=== PATIENT | female | born 1970 | race Caucasian/White ===

== ENCOUNTER → 2017-08-23 13:54 | Outpatient (CLI) | payer OTHER, SELFPAY ==
--- NOTE | 2017-08-28 08:26 | LEAS ---
Arterial Study - Arterial Study Arterial Study: This is a 47-year-old female with a history of hypertension, hyperlipidemia, and diabetes mellitus. Suspecting the presence of atherosclerotic peripheral arterial occlusive disease, the patient was brought to the noninvasive vascular laboratory at this time for the purpose of bilateral noninvasive lower extremity arterial assessment. Doppler signal assessment was used to evaluate the pulses at ankle level bilaterally. The posterior tibial and dorsalis pedis pulses were triphasic bilaterally. Segmental limb pressures were obtained bilaterally. The right ankle pressure, as determined by posterior tibial pulse, was measured at 156 mmHg. The right ankle pressure, as determined by dorsalis pedis pulse, was measured at 133 mmHg. The right digital pressure was measured at 115 mmHg. The left ankle pressure, as determined by posterior tibial pulse, was measured at 152 mmHg. The left ankle pressure, as determined by dorsalis pedis pulse, was measured at 149 mmHg. The left digital pressure was measured at 115 mmHg. Pulse-volume recordings were obtained bilaterally and segmentally. Waveform amplitudes appeared to be satisfactory at all levels bilaterally, including low thigh, calf, ankle, and digital levels. Resting ankle-brachial indices were calculated bilaterally. The resting right ankle-brachial index was calculated to be 1.25. The resting left ankle-brachial index was calculated to be 1.22. Digital-brachial indices were calculated bilaterally. The right digital-brachial index was calculated to be 0.92. The left digital-brachial index was calculated to be 0.92. Impression: Based upon the findings of this resting noninvasive lower extremity arterial study, there is no evidence of significant atherosclerotic peripheral arterial occlusive disease in the lower extremities bilaterally. Triphasic waveforms are noted at ankle level bilaterally. Resting ankle-brachial indices were bilaterally normal. Digital-brachial indices were normal bilaterally. In summary, this represents a normal resting noninvasive lower extremity arterial study bilaterally
--- NOTE | 2017-08-28 08:29 | LEAS_ITS ---
Arterial Study - Arterial Study Arterial Study: This is a 47-year-old female with a history of hypertension, hyperlipidemia, and diabetes mellitus. Suspecting the presence of atherosclerotic peripheral arterial occlusive disease, the patient was brought to the noninvasive vascular laboratory at this time for the purpose of bilateral noninvasive lower extremity arterial assessment. Doppler signal assessment was used to evaluate the pulses at ankle level bilaterally. The posterior tibial and dorsalis pedis pulses were triphasic bilaterally. Segmental limb pressures were obtained bilaterally. The right ankle pressure, as determined by posterior tibial pulse, was measured at 156 mmHg. The right ankle pressure, as determined by dorsalis pedis pulse, was measured at 133 mmHg. The right digital pressure was measured at 115 mmHg. The left ankle pressure, as determined by posterior tibial pulse, was measured at 152 mmHg. The left ankle pressure, as determined by dorsalis pedis pulse, was measured at 149 mmHg. The left digital pressure was measured at 115 mmHg. Pulse-volume recordings were obtained bilaterally and segmentally. Waveform amplitudes appeared to be satisfactory at all levels bilaterally, including low thigh, calf, ankle, and digital levels. Resting ankle-brachial indices were calculated bilaterally. The resting right ankle-brachial index was calculated to be 1.25. The resting left ankle- brachial index was calculated to be 1.22. Digital-brachial indices were calculated bilaterally. The right digital- brachial index was calculated to be 0.92. The left digital-brachial index was calculated to be 0.92. Impression: Based upon the findings of this resting noninvasive lower extremity arterial study, there is no evidence of significant atherosclerotic peripheral arterial occlusive disease in the lower extremities bilaterally. Triphasic waveforms are noted at ankle level bilaterally. Resting ankle-brachial indices were bilaterally normal. Digital-brachial indices were normal bilaterally. In summary, this represents a normal resting noninvasive lower extremity arterial study bilaterally
== END ==
PROVIDERS: Family Provider Family Medicine; PCP Family Medicine; Visit Provider Podiatrist
DX: I73.9 Peripheral vascular disease, unspecified (principal)
CPT/HCPCS: 93923

== ENCOUNTER → 2019-03-13 05:57 | Outpatient (CLI) | payer OTHER, SELFPAY ==
--- NOTE | 2019-03-13 10:10 | NEURO ---
NCS and/or EMG Patient Report Ordering Doctor: Chris Moy DATE OF SERVICE: 03/13/19 Kisha Luo is a 48 year old female who presents for electrodiagnostic testing of the lower limbs. She has numbness and tingling in both toes, worse on the right. There is tingling in the left calf. Electrodiagnostic findings: Peroneal motor nerve demonstrates normal distal latency, amplitude and conduction velocity bilaterally. Normal tibial motor response bilaterally. Normal peroneal and tibial F waves. H reflex prolonged on the left side. Prolonged left sural latency is noted. Superficial peroneal responses are normal. Plantar responses within normal limits. Needle EMG demonstrates no evidence of denervation in any muscles tested. Motor unit action potentials of normal amplitude and duration. Electrodiagnostic impression: This is an abnormal study in the lower limbs. 1. 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 2. No electrodiagnostic evidence is noted for peripheral polyneuropathy. 3. There is no electrodiagnostic evidence for lumbosacral radiculopathy. If there are any further questions, please do not hesitate to contact me.
== END ==
PROVIDERS: Family Provider Family Medicine; PCP Family Medicine; Referring Provider Podiatrist; Visit Provider Podiatrist
DX: R20.0 Anesthesia of skin (principal); R20.2 Paresthesia of skin; G62.9 Polyneuropathy, unspecified; M54.10 Radiculopathy, site unspecified
CPT/HCPCS: 95886; 95913

== ENCOUNTER → 2020-02-13 10:45 | Outpatient (CLI) | payer OTHER, SELFPAY ==
[2020-02-13 10:42] VITALS: BMI 31.8
--- NOTE | 2020-02-13 10:46 | RAD_ITS ---
STUDY: X-RAY - LEFT SHOULDER REASON FOR EXAM: Chronic left shoulder pain, no specific injury. TECHNIQUE: 4 view(s) of the shoulder. COMPARISON: None. FINDINGS: Normal glenohumeral articulation. Normal acromioclavicular joint. Normal acromion. Normal humeral head and visualized proximal humerus. The soft tissue structures are unremarkable. Normal visualized pulmonary apex. RAD/Shoulder min 2 Views IMPRESSION: Normal x-ray examination of the left shoulder. Electronically Signed: Sanjeev Justin MD at 12:09 EDT Tel , Service support ,
--- NOTE | 2020-02-13 10:46 | RAD_ITS ---
STUDY: X-RAY - RIGHT SHOULDER REASON FOR EXAM: Chronic right shoulder pain, no specific injury. TECHNIQUE: 4 view(s) of the shoulder. COMPARISON: None. FINDINGS: Normal glenohumeral articulation. Normal acromioclavicular joint. Normal acromion. Normal humeral head and visualized proximal humerus. The soft tissue structures are unremarkable. Normal visualized pulmonary apex. RAD/Shoulder min 2 Views IMPRESSION: Normal x-ray examination of the right shoulder. Electronically Signed: Sanjeev Justin MD at 11:27 EDT Tel , Service support ,
== END ==
PROVIDERS: PCP Family Medicine; Referring Provider Orthopaedic Surgery; Visit Provider Orthopaedic Surgery
DX: M25.511 Pain in right shoulder (principal); M25.512 Pain in left shoulder
CPT/HCPCS: 73030

== ENCOUNTER 2020-03-14 09:27 | Emergency (ER) | payer OTHER, SELFPAY ==
[2020-02-13 10:42] VITALS: BMI 31.8
[2020-03-14 09:28] VITALS: BP 150/95; PULSE 89; RESP 16; TEMP 36.3; O2SAT 99; BMI 30.7
--- NOTE | 2020-03-14 10:20 | ED.DCSUM_ITS ---
History of Present Illness Chief Complaint: Upper Extremity Injury Informant: Patient Onset: Today Maximum Severity: Mild Narrative: The patient presents complaining of right shoulder pain occurred today she indicates she slipped related to an item on the floor she then had a jerking movement to her right shoulder she did not fall or strike her shoulder, She has a history of pain in that right shoulder related to a partial tear to rotator cuff she had an injection of steroid she believes a few weeks ago by Dr. Tyler orthoped[facility] she has been undergoing physical therapy she exacerbated her shoulder pain the wide amplitude movement today she has no numbness weakness paresthesias to the hand again she did not fall or strike herself Past Medical History - Allergies and Home Meds Allergies/Adverse Reactions: Allergies ketoconazole Allergy (Verified 03/14/20 09:30) Other LIPS SWELL melatonin Allergy (Verified 03/14/20 09:30) Itching Penicillins Allergy (Verified 03/14/20 09:30) Hives Sulfa (Sulfonamide Antibiotics) Allergy (Verified 03/14/20 09:30) Hives Primary Care Physician: Rex Armendariz MD [NON-STAFF] - Past Medical History: - - Includes as above diabetes right shoulder injury Smoking Status: Never smoker Review of Systems General: Denies: Chills, Fever, Sweats Eyes: Denies: Visual changes - bilaterally, Diplopia ENT: Denies: Rhinorrhea, Sore throat Cardiovascular: Denies: Chest pain, Palpitations Respiratory: Denies: Dyspnea, Cough, Dyspnea on exertion Gastrointestinal: Denies: Abdominal pain, Nausea, Vomiting, Diarrhea, Melena, Hematochezia Genitourinary: Denies: Dysuria, Hematuria, Frequency Musculoskeletal: Reports: Extremity Pain. Denies: Back pain Skin: Denies: Rash, Wounds Neurological: Denies: Headache, Weakness, Numbness Physical Exam Vital Signs/Narrative: Vital Signs Temp Pulse Resp BP Pulse Ox 03/14/20 09:28 97.3 F L 89 16 150/95 H 99 General: Well nourished, Well developed, No Acute Distress Head: Normocephalic, Atraumatic Eyes: Perrl, EOMI ENT: Moist mucous membranes, No rhinorrhea Neck: Supple, Nontender Cardiovascular: Regular rate, Regular rhythm, No murmurs Respiratory: No distress, CTA bilaterally, Chest nontender Abdomen: Soft, Nontender, Nondistended, Normal bowel sounds Back: Nontender, Normal Inspection Extremities: No edema, - - Is a nonspecific discomfort to the anterior right shoulder her forward elevation lateral elevation range of motion is intact, she has no signs of dislocation or fracture, she has full range of motion to elbow forearm wrist hand normal function no neurovascular issues Skin: Normal color, No rash Neurological: Alert, Oriented x3, Cranial nerves II-XII grossly intact, Normal Strength, Normal Sensation Psychological: Normal affect, Normal Mood Diagnostic/Tx/Re-eval - Medical Decision Making Discussed all the above the patient discussed the differential discussed x-rays she declined she question whether she needed an MRI, I explained to that procedure was not generally available through the emergency department again she declined the x-ray at this time she was with a sling Naprosyn for pain Whately as rescue medicine she will follow-up with orthopedic providers for further management return for change in symptoms Home stable Final impression acute exacerbation of right shoulder injury ED Disposition - Plan for ED Patient: Diagnosis: Right shoulder injury Instructions: ED Shoulder Sprain Prescriptions: Naproxen [Naprosyn] 500 mg PO BID #20 tab Prescription Printed Hydrocodone Bitart/Apap 5-325 [Whately 5MG-325MG] 1 tab PO Q4H PRN PRN 2 Days #10 tab PRN Reason: Pain Prescription Printed Referrals: Rex Armendariz MD [NON-STAFF] -
[2020-03-14] MEDS: Naproxen 500 MG Tablet PO (10:29)
== END 2020-03-14 10:34 | disposition home or self-care (01) ==
PROVIDERS: Emergency Provider Emergency Medicine; PCP Family Medicine
DX: S49.91XA Unspecified injury of right shoulder and upper arm, initial encounter (principal); W01.0XXA Fall on same level from slipping, tripping and stumbling without subsequent striking against object, initial encounter; Y93.9 Activity, unspecified; Y92.9 Unspecified place or not applicable; Y99.9 Unspecified external cause status; E11.9 Type 2 diabetes mellitus without complications; Z79.84 Long term (current) use of oral hypoglycemic drugs; Z79.899 Other long term (current) drug therapy
CPT/HCPCS: 99283

== ENCOUNTER 2022-03-30 16:30 | Outpatient (RCR) | payer OTHER, SELFPAY ==
--- NOTE | 2022-02-14 08:23 | HP.PTEVAL_ITS ---
Patient's Visit Information MACK PENA is a 51 year old F referred to Physical Therapy by Dr. Chris Moy DPM with a diagnosis of L achilles tendonitis, Plantar fasciitis. Date of Evaluation: 02/10/22 Physical Therapist: Sacha Montez DPT - Visit Plan Frequency: 2x /Week Duration: 6 Weeks Plan: Start with instruction on prolonged moderate stretching, frequently. Avoid aggressive stretching as this previously caused increased pain. Add in DN/US to achilles tendon, consider graston to similar region as well. Once symptoms have reduced a bit add in eccentric exercises. - Subjective Pt. is here today for her initial evaluation with of L achilles tendonitis, and plantar fasciitis. She reports having issues for about 1 year. She thinks see a chiro might have started this. She reports increased pain in AMs and with initial getting up after prolonged sitting. She denies N/T in either LE. Pt. reports no other mech of injury. She does have some issues going up and down stairs. She is sleeping okay, but is not wearing the splint at night due to only tolerating a about 1 hour at a time. 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 I talked to her about stretching consistently at work and throughout the day. Pt. would like to be able to complete all of her daily activities without limitations. - Pain L heel, plantar fascitis Pain Intensity (Out of 10): 0 Pain Intensity Range: 8 Comment: worse in AMs. - Objective POSTURE: Pt. has decent posture in stance. She does present with increased arch height in stance. Small increased pronation during SLS, symmetrical. PALPATION: Pt. is tender as distal insertion of Achilles tendon and along the tendon it self. NEURO: normal throughout BLEs. Normal DTR of B Achilles and patellar tendons. Pt is able to rise on heels and toes without issues. ROM: R ankle: DF 18deg, PF 54deg, Inv 18deg, EVR 18deg. R ankle: PF 46deg, DF 10deg, EVR 7 deg, INV 18deg. R knee: 0-0-103deg, L knee: 0-0-134deg. Pt. has tightness in B HS as well. She does have good length of soleus, but much more tightness of R gastroc musculature. MMT: 5/5 throughout BLEs. Pt. did have some pain at distal L Achilles tendon with firm PF. GAIT: Pt. ambulates without AD. She does have much of an antalgic pattern, but does present with slight early heel off during pre swing on R side and decreased DF noticed during L swing phase. STAIRS: much more difficulty with descending during L stance phase, resulting in early heel off and increased L knee flexion. - Balance/Special Test Scores Lower Extremity Functional Score: 59 - Goals Goal 1:: LTG: Pt. to be I with HEP. Goal Time Frame: 2-4 Weeks Goal 2:: STG: Pt. to have decreased pain with initial walking in AMs and throughout the day to 0-2/10 pain. Goal Time Frame: 2 Weeks Goal 3:: LTG: Pt. to have normal gait pattern without increase in L heel/Achilles pain. Goal Time Frame: 4-6 Weeks Goal 4:: LTG: Pt. to have at least 15deg of L ankle DF allowing for increased tolerance to all functional mobility. Goal Time Frame: 4-6 Weeks Goal 5:: LTG: Pt. to complete all work activities without increase in symptoms. - Rehabilitation Potential Physical Therapy Diagnosis: Pt. has signs and symptoms consistent with L Achilles tendonitis. She has marked hypomobility of her L ankle, most notably into ankle DF. She does not have much weakness in her ankle musculature, but some pain noted. Both of this issues seem to caused altered gait, and stair negotiation. I would like to work in PT to address the above limitations progressing back to all recreational and work activities without limitations. Rehabilitation Potential: Excellent - Anticipated Interventions Patient/Client Instruction: Educate patient on: Condition, Plan of Care, Risk Factors, Benefits of Fitness Program For the Purpose of:: To foster healthy habits, To improve decision making, To facilitate caregiver knowledge, To improve self management, To prevent re- injury, To improve ability to perform tasks related to life management Therapeutic Exercise to Include: Strength training, Power training, Body mechanics, Postural training, Flexibilty training, Gait and locomotor training, Passive ROM, Active ROM For the Purpose of:: To decrease pain, To decrease swelling/inflammation, To increase ROM, To improve nutrient delivery to tissue, To increase oxygenation perfusion, To improve muscle performance and motor function, To improve ability of physical actions for home/community/work/leisure, To improve gait and locomotor functions, To improve health of tissue, To decrease soft tissue restriction, To increase flexibility/ROM Manual Therapy Techniques to Include: Mobilization, Functional dry needling For the Purpose of:: To decrease pain, To decrease swelling/inflammation, To increase ROM, To improve nutrient delivery to tissue Ultrasound (thermal/non thermal): Yes For the Purpose of:: To decrease pain, To decrease swelling/inflammation, To i ncrease ROM, To improve nutrient delivery to tissue, To increase oxygenation perfusion Thank you for the opportunity to evaluate your patient. For Medicare and Medicare HMO plans, please review the plan of care and approve it. It will need to be FAXED BACK to us at [phone] for Medicare purposes. For Medicare only, by signing this I certify the plan of care. Please let me know if there are questions or concerns regarding this plan of care. Physician Signature: Date:
== END 2022-03-30 19:00 | disposition home or self-care (01) ==
LOC: PT 16:30
PROVIDERS: PCP Family Medicine; Referring Provider Podiatrist; Visit Provider Podiatrist
DX: M72.2 Plantar fascial fibromatosis (principal); M76.62 Achilles tendinitis, left leg
CPT/HCPCS: 97035; 97110; 97140; 97161

== ENCOUNTER 2023-08-24 07:00 | Outpatient (RCR) | payer SELFPAY ==
--- NOTE | 2023-10-10 10:22 | HP.PT.NRP ---
Patient Information Patient Information: MACK PENA was seen in my office for initial evaluation on 08/18/23. The following Plan of Care was established for this patient: Anticipated Interventions Patient/Client Instruction: Educate patient on: Condition, Plan of Care, Risk Factors and Benefits of Fitness Program For the Purpose of:: To facilitate caregiver knowledge, To improve self management, To prevent re-injury, To improve ability to perform tasks related to life management and To improve tolerance to ADL's Therapeutic Exercise to Include: Strength training, Power training, Postural training, Flexibilty training, Passive ROM and Active ROM For the Purpose of:: To decrease pain, To increase ROM, To improve nutrient delivery to tissue, To increase oxygenation perfusion, To improve muscle performance and motor function and To improve ability to perform ADL's Manual Therapy Techniques to Include: Functional dry needling and Soft tissue mobilization For the Purpose of:: To decrease pain, To decrease swelling/inflammation, To increase ROM, To improve nutrient delivery to tissue and To increase oxygenation perfusion Last Seen Last Seen: This patient was last seen in our office 08/24/23. Pertinent comments regarding their Physical therapy will appear below: Pt. was seen for self pay DN. Pt. has not been back in ~6 weeks and will be DC at this point in time. At this point I will be discontinuing this patient from physical therapy. I would be happy to see this patient again in the future if found appropriate by the physician. Thank you! Sacha Montez, DPT Balance/Gait/Functional tests Balance/Special Test Scores Quick DASH Score: [phone]
== END 2023-08-24 19:00 | disposition home or self-care (01) ==
LOC: PT 07:00
PROVIDERS: PCP Family Medicine
DX: M54.2 Cervicalgia (principal); M25.512 Pain in left shoulder; M25.511 Pain in right shoulder

== ENCOUNTER 2025-01-06 09:00 | Outpatient (RCR) | payer SELFPAY ==
--- NOTE | 2025-02-05 07:29 | HP.PT.NRP ---
Patient Information Patient Information: MACK PENA was seen in my office for initial evaluation on . The following Plan of Care was established for this patient: Anticipated Interventions Manual Therapy Techniques to Include: Functional dry needling Last Seen Last Seen: This patient was last seen in our office . Pertinent comments regarding their Physical therapy will appear below: Dry Needling- d/c chart At this point I will be discontinuing this patient from physical therapy. I would be happy to see this patient again in the future if found appropriate by the physician. Thank you! SOFÍA BourneT
== END 2025-01-06 19:00 | disposition home or self-care (01) ==
LOC: PT 09:00
PROVIDERS: PCP Family Medicine
DX: Z00.00 Encounter for general adult medical examination without abnormal findings (principal)